=== PATIENT | male | born 1995 | race Two or more races ===

== ENCOUNTER 2020-11-13 00:40 | Inpatient (IN) | payer MEDICAID, OTHER ==
[~2020-11-13] VITALS: Ht 185.4 cm; Wt 63.5 kg
[2020-11-13] MEDS ORDERED: LORazepam 2 MG TABLET PO PRN (01:45)
[2020-11-13] MEDS ORDERED: ZOLPIDEM TARTRATE 10 MG TABLET PO PRN (01:45)
[2020-11-13] MEDS ORDERED: HALOPERIDOL 5 MG TABLET PO PRN (01:45)
[2020-11-13 02:12] LABS: COVID AG,FIA SOURCE NASOPHARYNGEAL
[2020-11-13 02:16] LABS: BASOPHILS % (AUTO) 1.1 % (0.0-2.0); EOSINOPHILS % (AUTO) 1.1 % (1.0-6.0); HEMATOCRIT 45.3 % (41-53); HEMOGLOBIN 15.1 g/dL (13.5-17.5); LYMPHOCYTES # (AUTO) 2.3 K/uL (1.0-4.8); LYMPHOCYTES % (AUTO) 34.3 % (22.0-44.0); MEAN CORPUSCULAR HEMOGLOBIN 31.5 pg (26.0-34.0); MEAN CORPUSCULAR HGB CONC 33.3 G/dL (31.0-37.0); MEAN CORPUSCULAR VOLUME 95 fL (80-100); MONOCYTES # (AUTO) 0.6 K/uL (0.1-1.0); MONOCYTES % (AUTO) 8.5 % (2.0-9.0); NEUTROPHILS # (AUTO) 3.7 K/uL (1.8-7.7); PLATELET COUNT (AUTO) 139 K/uL (150-450); RED BLOOD CELL COUNT(AUTO) 4.79 MIL/uL (4.50-5.90); RED CELL DISTRIBUTION WIDTH 12.3 % (11.5-14.5)
[2020-11-13 02:25] LABS: ANION GAP 7 mmol/L (8-16); CALCIUM, TOTAL 8.3 mg/dL (8.8-10.5); CARBON DIOXIDE 31 mmol/L (22-29); CHLORIDE 102 mmol/L (98-107); CREATININE 1.02 mg/dL (0.60-1.30); GLOMERULAR FILTR. RATE CALC > 60 mL/min (>60); GLUCOSE,RANDOM 90 mg/dL (70-110); POTASSIUM 4.2 mmol/L (3.5-5.1); SODIUM SERUM 140 mmol/L (136-145); UREA NITROGEN, BLOOD 6 mg/dL (7-18)
[2020-11-13 02:27] LABS: APPEARANCE,URINE CLEAR (CLEAR); BILIRUBIN,URINE NEGATIVE (NEGATIVE); GLUCOSE, URINE (UA) NEGATIVE (NEGATIVE); KETONES,URINE NEGATIVE (NEGATIVE); LEUKOCYTE ESTERASE ,URINE NEGATIVE (NEGATIVE); NITRATE,URINE NEGATIVE (NEGATIVE); OCCULT BLOOD,URINE NEGATIVE (NEGATIVE); PROTEIN,URINE NEGATIVE (NEGATIVE)
[2020-11-13 02:28] LABS: AMPHET/METH SCREEN,URINE NEGATIVE (NEGATIVE); BARBITURATE SCREEN, URINE NEGATIVE (NEGATIVE); BENZODIAZEPINES SCREEN,URINE NEGATIVE (NEGATIVE); CANNABINOID SCREEN,URINE POSITIVE (NEGATIVE); COCAINE SCREEN,URINE NEGATIVE (NEGATIVE); METHADONE SCREEN, URINE NEGATIVE (NEGATIVE); OPIATE SCREEN,URINE NEGATIVE (NEGATIVE)
[2020-11-13 02:31] LABS: ALANINE AMINOTRANSFERASE 27 U/L (12-78); ALBUMIN 4.2 g/dL (3.4-5.0); ALKALINE PHOSPHATASE 64 U/L (46-116); ASPARTATE AMINOTRANSFERASE 18 U/L (15-37); BILIRUBIN,TOTAL 0.6 mg/dL (0.1-1.0); TOTAL PROTEIN, SERUM 7.3 g/dL (6.4-8.2)
[2020-11-13 02:31] LABS: PHENCYCLIDINE SCREEN,URINE NEGATIVE (NEGATIVE)
[2020-11-13 05:05] VITALS: BP 117/78
[2020-11-13] MEDS ORDERED: DOCUSATE SODIUM 100 MG CAPSULE PO PRN (06:00)
[2020-11-13] MEDS ORDERED: ACETAMINOPHEN 325 MG TABLET PO PRN (06:00)
[2020-11-13] MEDS ORDERED: CloNIDine HCL 0.1 MG TABLET PO PRN (06:00)
[2020-11-13] MEDS ORDERED: NICOTINE 14 MG/24 HOUR PATCH TD PRN (06:00)
[2020-11-13] MEDS ORDERED: MAG HYDROX/AL HYDROX/SIMETH ES 30 ML SUSPENSION UDCUP PO PRN (06:00)
[2020-11-13] MEDS ORDERED: PETROLATUM,WHITE 28 GM JELLY TP PRN (06:00)
[2020-11-13] MEDS ORDERED: MAGNESIUM HYDROXIDE SUSPENSION 30 ML UDCUP PO PRN (06:00)
[2020-11-13] MEDS ORDERED: IBUPROFEN 400 MG TABLET PO PRN (06:00)
[2020-11-13] MEDS ORDERED: ONDANSETRON HCL 4 MG TABLET PO PRN (06:00)
[2020-11-13] MEDS ORDERED: GuaiFENesin/D-METHORPHAN [SUGAR-FREE] 200-20MG/10 ML SYRUP UDCUP PO PRN (06:00)
[2020-11-13] MEDS ORDERED: ALBUTEROL SULFATE HFA 90 MCG/PUFF 8 GM INHALER IH PRN (06:00)
[2020-11-13] MEDS ORDERED: LOPERAMIDE HCL 2 MG CAPSULE PO PRN (06:00)
[2020-11-13 07:00] LABS: SALICYLATE 2.4 mg/dL (2.8-20.0)
[2020-11-13 07:08] LABS: ACETAMINOPHEN < 2 mcg/mL (10-30)
[2020-11-13 08:00] VITALS: BP 102/68
[2020-11-13] MEDS: CITALOPRAM HYDROBROMIDE 20 MG TABLET PO SCH (14:33)
[2020-11-13 16:14] VITALS: BP 119/67
[2020-11-14 09:16] LABS: CHOL/HDL RATIO 2.7 (4.2-7.3)
[2020-11-14 09:18] VITALS: BP 119/74
[2020-11-14] MEDS: CITALOPRAM HYDROBROMIDE 20 MG TABLET PO SCH (09:51)
[2020-11-14] MEDS: THIAMINE 100 MG TABLET PO SCH (16:18)
[2020-11-14 17:12] VITALS: BP 108/73
[2020-11-15 00:50] LABS: PHOSPHORUS 3.9 mg/dL (2.5-4.9)
[2020-11-15 09:00] VITALS: BP 124/67
[2020-11-15] MEDS: THIAMINE 100 MG TABLET PO SCH ×2 (09:29→16:17)
[2020-11-15] MEDS: FOLIC ACID 1 MG TABLET PO SCH (09:29)
[2020-11-15] MEDS: CITALOPRAM HYDROBROMIDE 20 MG TABLET PO SCH (09:30)
[2020-11-15 16:50] VITALS: BP 123/65
[2020-11-16 08:54] VITALS: BP 139/80
[2020-11-16] MEDS: FOLIC ACID 1 MG TABLET PO SCH (08:56)
[2020-11-16] MEDS: THIAMINE 100 MG TABLET PO SCH (08:56)
[2020-11-16] MEDS: CITALOPRAM HYDROBROMIDE 20 MG TABLET PO SCH (08:56)
[2020-11-16] MEDS ORDERED: CITA-144 PO (10:18)
== END 2020-11-16 13:15 | disposition home or self-care (01) | DRG 754 ==
LOC: EMS 00:41 → 3EI 03:00
PROVIDERS: ADMIT Psychiatry & Neurology Psychiatry; ATTEND Psychiatry & Neurology Psychiatry
DX: F32.9 Major depressive disorder, single episode, unspecified (principal); D69.6 Thrombocytopenia, unspecified; R45.851 Suicidal ideations; F12.90 Cannabis use, unspecified, uncomplicated; F17.210 Nicotine dependence, cigarettes, uncomplicated; F41.0 Panic disorder [episodic paroxysmal anxiety]; F41.1 Generalized anxiety disorder; Z79.899 Other long term (current) drug therapy; Z20.822 Contact with and (suspected) exposure to COVID-19
CPT/HCPCS: 80053; 80061; 81003; 83735; 84100; 85025; 99285; G0480; G0481